=== PATIENT | female | born 1980 | race Caucasian/White ===

== ENCOUNTER 2016-12-27 04:08 | Inpatient (IN) | payer OTHER ==
[2016-12-27] MEDS ORDERED: OXYTOCIN/RINGERS LACTATE 1,000 ML IV PRN (04:53)
[2016-12-27] MEDS ORDERED: TERBUTALINE SULFATE 1 MG/ML VIAL IV PRN (04:53)
[2016-12-27] MEDS ORDERED: LR 1,000 ML IV PRN (04:53)
[2016-12-27 05:16] LABS: % IMMATURE GRANULYOCYTES 0.5 % (0.0-1.1); ABSOLUTE IMMATURE GRANULOCYTES 0.06 10^3/uL (0.00-0.10); ADD DIFF? NO; ADD MORPH? NO; ADD SCAN? NO; ATYPICAL LYMPHOCYTE FLAG 10 (0-99); FRAGMENT RBC FLAG 0 (0-99); HEMATOCRIT 38.7 % (38.0-47.0); HEMOGLOBIN 13.3 g/dL (12.6-16.3); LEFT SHIFT FLG 0 (0-99); LIPEMIA HEMOLYSIS FLAG 90 (0-99); MEAN CELL HEMOGLOBIN 31.7 pg (27.9-34.1); MEAN CELL HEMOGLOBIN CONCENTR. 34.4 g/dL (32.4-36.7); MEAN CELL VOLUME 92.4 fL (81.5-99.8); PLATELET CLUMPS FLAG 10 (0-99); PLATELET COUNT 183 10^3/uL (150-400); RED BLOOD CELL COUNT 4.19 10^6/uL (4.18-5.33); RED CELL DISTRIBUTION WIDTH 12.6 % (11.5-15.2)
[2016-12-27] MEDS ORDERED: AMMONIA AROMATIC 1 EACH AMP IH ONE (05:28)
[2016-12-27] MEDS ORDERED: LIDOCAINE 1% 30 ML SDV ONE (05:28)
[2016-12-27] MEDS ORDERED: TERBUTALINE SULFATE 1 MG/ML VIAL ONE (05:29)
[2016-12-27] MEDS ORDERED: MISOPROSTOL 200 MCG TAB ONE (05:29)
[2016-12-27] MEDS ORDERED: OXYTOCIN 10 UNIT/ML VIAL ONE (05:29)
[2016-12-27] MEDS ORDERED: fentaNYL 2MCG/ML/BUP 0.1% RTU 100 ML BAG EP ONE (06:03)
--- NOTE | 2016-12-27 06:21 | GHP ---
Labs: -Rh neg, rec'd Rhogam 09/30/16 -GBS neg -H&H 13.3/38.7 -1h GTT 117 -TDap rec'd 11/11/16 [f rep st] PREOP HISTORY AND PHYSICAL DATE OF ADMISSION: 12/27/2016 A 36-year-old, 3, para 1-0-1-1, at 40 weeks and 4 days, presenting in active labor. Arrived to the hospital around 4:00 a.m. at 7 cm, 90, and 0, with a bulging bag of water, complaining about contractions that started last night around 6:30 p.m. At 8:30 p.m., got stronger, and currently 10 minutes apart. MEDICAL HISTORY: Denies. SURGICAL HISTORY: D and C, in October 2014, status post miscarriage. MEDICATIONS: vitamins. ALLERGIES: Penicillin. Patient unsure of reaction. GYNECOLOGICAL HISTORY: Denies history of abnormal Paps. Denies history of STDs. SOCIAL HISTORY: Patient is . Denies alcohol, tobacco, or drug use. FAMILY HISTORY: Noncontributory. OBSTETRIC HISTORY: 1. October 2014, miscarriage with a D and C. 2. September 06, 2015, a vaginal delivery at 39 weeks. No complications. A 7- pound 12-ounce male. PHYSICAL EXAMINATION: VITAL SIGNS: Stable. GENERAL APPEARANCE: Alert and oriented x3. Heart rate regular. LUNGS: Clear to auscultation bilaterally. ABDOMEN: Gravid, nontender. position is cephalic. VAGINAL: 6-7, 90, 0. HEART TRACING: Category 1. Heart tones 135 with moderate variability and accelerations. No decelerations, and contractions are every 5- 7 minutes. ASSESSMENT: 1. A 36-year-old, 3, para 1-0-1-1, at 40 weeks and 4 days, presents in active labor, arriving at 7, 90, and 0. 2. She is Rh negative, received RhoGAM 09/29/2016. 3. Advanced maternal age. 4. GBS was negative. PLAN: 1. Admission labs. 2. Continue with maternal- monitoring. 3. Expectant management. 4. Patient requests epidural. 5. Discussed AROM if patient desires. /[id number]/MODL MTDD
--- NOTE | 2016-12-27 07:05 | OBPROG ---
OBG Progress Note Assessment/Plan: Assessment: 36y/o @40w4d Active labor Plan: Expectant mgmt KIYA in place Offer AROM Con't maternal/ monitoring 12/27/16 07:02 Subjective: Pt comfortable, resting in bed s/p epidural. FOB at bedside. Objective: 12/27/16 05:00 Patient ABO/Rh A NEGATIVE 12/27/16 05:00 - SVE Dilation (cm): 6 Effacement (%): 90 Station: 0 Current Contraction Pattern: Irregular, Other (Specify) (q 3-7 min) FHR Pattern Variability: Moderate FHR Category: 1 Membranes: AROM Amniotic Fluid Color: Clear - Physical Exam General Appearance: alert, no apparent distress Membranes: AROM Amniotic Fluid Color: clear Neuro/Psych: alert, normal mood/affect, oriented x 3 ICD10 Worksheet Patient Problems: Problems Problem Status Onset Active labor at term Acute (spontaneous vaginal delivery) Acute
--- NOTE | 2016-12-27 09:35 | OBPROG ---
OBG Progress Note Assessment/Plan: Assessment: 36 y/o @ 40 4/7 wks who presents in active labor Plan: Continue expectant management s/p epidural FHTs - Cat I tracing Anticipate 12/27/16 09:30 Subjective: Pt is comfortable, s/p epidural. Objective: 12/27/16 05:00 Patient ABO/Rh A NEGATIVE 12/27/16 05:00 - SVE Dilation (cm): 9 Effacement (%): 100 Station: +1 Current Contraction Pattern: Regular FHR (bpm): 135 FHR Pattern Variability: Moderate FHR Category: 1 Membranes: AROM Amniotic Fluid Color: Clear ICD10 Worksheet Patient Problems: Problems Problem Status Onset Active labor at term Acute - ICD10 Problem Qualifiers (1) Active labor at term (2) Active labor at term
[2016-12-27] MEDS ORDERED: OXYTOCIN/RINGERS LACTATE 30 UNIT/500 ML BAG IV ONE (14:19)
[2016-12-27] MEDS ORDERED: OXYTOCIN/RINGERS LACTATE 500 ML IV SCH (14:30)
--- NOTE | 2016-12-27 15:07 | OBPROG ---
OBG Progress Note Assessment/Plan: Assessment: 36 y/o @ 40 4/7 wks who presents in active labor Plan: FHTs - Cat I tracing Pt labored down x 2 hours with minimal descent in head position, still at +1 station Will start Pitocin since ctx's have spaced apart and pt has been pushing x 1 hr , stop pushing for now Suspect direct OP, will try peanut for position change x 20-30 min and start pushing again Anticipate 12/27/16 15:04 Subjective: Pt is feeling uncomfortable in between ctx's and states it feels better to push. No rectal pressure noted. Objective: 12/27/16 05:00 Patient ABO/Rh A NEGATIVE 12/27/16 05:00 Current Contraction Pattern: Irregular FHR (bpm): 140 FHR Pattern Variability: Moderate FHR Category: 1 Membranes: AROM Amniotic Fluid Color: Clear ICD10 Worksheet Patient Problems: Problems Problem Status Onset Active labor at term Acute - ICD10 Problem Qualifiers (1) Active labor at term
[2016-12-27] MEDS ORDERED: HYDROCORTISONE 0.5% CREAM TP PRN (18:19)
[2016-12-27] MEDS ORDERED: SIMETHICONE 80 MG TAB CHEW PO PRN (18:19)
[2016-12-27 18:20] LABS: PH VENOUS CORD BLOOD 7.33 (7.20-7.42)
[2016-12-27] MEDS ORDERED: IBUPROFEN 600 MG TAB PO PRN (18:20)
[2016-12-27 18:23] LABS: CORD BLOOD PCO2 59.8 mmHg (37-60); PH ARTERIAL CORD BLOOD 7.21 (7.10-7.37)
--- NOTE | 2016-12-27 18:24 | OBPROC ---
- Labor and Delivery Onset of Contractions Date: 12/26/16 Onset of Contractions Time: 21:00 Onset of Contractions Type: Spontaneous Rupture of Membranes Date: 12/27/16 Rupture of Membranes Time: 07:00 Rupture of Membranes Type: Artificial Amniotic Fluid Color: Clear Dilation Complete Time: 11:15 Delivery Type: Vacuum (Vacuum applied at +3 station, OA position, with appropriate pressures throughout. Applied x 2 for a duration of 2 minutes/2 sets of ctx's. Vacuum then removed and pt delivered head and rest of baby spontaneously.) Placenta Delivery Date: 12/27/16 Placenta Delivery Time: 17:52 Episiotomy/Laceration: 2nd Degree Repair: 3-0, Other (Specify) (Vicryl) EBL: 350 Complications: None Cord Gases: Cord Gases Cord VBG pH 7.33 (7.20-7.42) 12/27/16 17:46 - Medications Labor Augmentation/Induction Meds Used: Pitocin Labor Augmentation/Induction Indication: Other (Specify) (Prolonged second stage of labor) Anesthesia: Epidural - Info Infant A Delivery Date: 12/27/16 Delivery Time: 17:46 Sex of Infant: Female Score (1 Min): 7 Score (5 Min): 8
[2016-12-27] MEDS: IBUPROFEN 600 MG TAB PO PRN (18:31)
[2016-12-28] MEDS: IBUPROFEN 600 MG TAB PO PRN ×4 (00:07→17:57)
[2016-12-28] MEDS: HYDROCODONE/APAP 5/325 TAB PO PRN ×4 (06:41→20:15)
[2016-12-28 07:57] VITALS: TEMP 97.5
[2016-12-28] MEDS: DOCUSATE SODIUM 100 MG CAP PO PRN (11:50)
--- NOTE | 2016-12-28 12:31 | SOAPPROG ---
SOAP Progress Note Assessment/Plan: Assessment: 36y/o , day 1 Plan: Anticipate discharge to home tomorrow 12/27/16 07:02 12/28/16 12:29 Subjective: Pt resting comfortably, in NICU. Reports going well. Lochia light. Denies BM, passing flatus. Denies difficulty voiding. Objective: Vital Signs Temp Pulse Resp BP Pulse Ox 36.4 C 107 H 20 117/77 94 12/28/16 07:56 12/28/16 07:56 12/28/16 07:56 12/28/16 07:56 12/28/16 07:56 Laboratory Results 12/27/16 05:00 12/27/16 12/28/16 12/29/16 05:59 05:59 05:59 Output Total 350 Balance -350 Physical Exam - Physical Exam General Appearance: alert, no apparent distress Respiratory: lungs clear, normal breath sounds Cardiac/Chest: regular rate, rhythm Abdomen: non-tender, soft, other (Fundus firm @U-1) Pelvic Exam: vaginal bleeding (lochia light) Skin: normal color, warm/dry Extremities: normal range of motion Neuro/Psych: alert, normal mood/affect, oriented x 3 ICD10 Worksheet Patient Problems: Problems Problem Status Onset Active labor at term Acute Vacuum extraction, delivered, current hospitalization Acute
[2016-12-28 21:24] VITALS: O2SAT 97
[2016-12-29] MEDS: DOCUSATE SODIUM 100 MG CAP PO PRN ×3 (00:42→11:42)
[2016-12-29] MEDS: IBUPROFEN 600 MG TAB PO PRN ×3 (00:42→11:42)
[2016-12-29] MEDS: HYDROCODONE/APAP 5/325 TAB PO PRN ×2 (00:43→06:16)
--- NOTE | 2016-12-29 07:30 | OBPROG ---
OBG Progress Note Assessment/Plan: Assessment: 1) s/p VAVD PPD # 2 - pt is stable 2) Rh negative - no need for Rhogam Plan: Continue routine pp care Plan for d/c home today Instructions reviewed with pt Rx given for Motrin Cont PNV Pelvic rest RTC in 4 and 6 weeks for pp visit 12/29/16 07:27 12/29/16 07:29 Subjective: Pt seen and examined. Doing well, no complaints. Minimal cramping. Moderate lochia. She is pumping without difficulty. Baby girl is in NICU. If malgorzata stays will board. Objective: 12/27/16 05:00 Patient ABO/Rh A NEGATIVE 12/27/16 05:00 Temp Pulse Resp BP Pulse Ox 36.4 C 76 16 106/68 97 12/28/16 20:00 12/28/16 20:00 12/28/16 20:00 12/28/16 20:00 12/28/16 20:00 Uterine Position/Fundal Height: Umbilicus -2 Uterine Tone: Firm - Physical Exam General Appearance: WD/WN, alert, no apparent distress Respiratory: lungs clear, normal breath sounds Cardiac/Chest: regular rate, rhythm Abdomen: normal bowel sounds, non-tender, soft, flatus (+) Genitourinary: laceration (intact), lochia (moderate) Extremities: non-tender, normal inspection Neuro/Psych: alert, normal mood/affect, oriented x 3 ICD10 Worksheet Patient Problems: Problems Problem Status Onset Vacuum extraction, delivered, current hospitalization Acute - ICD10 Problem Qualifiers (1) Active labor at term
[2016-12-29 10:24] VITALS: BP 117/74; PULSE 75; RESP 14
== END 2016-12-29 12:00 | disposition home or self-care (01) | DRG 775 ==
LOC: OBSVTOIN 04:08 → FLD 04:08 → FOB 19:12
PROVIDERS: ADMIT Advanced Practice Midwife; ATTEND Obstetrics & Gynecology
PROC: 10907ZC Drainage of Amniotic Fluid, Therapeutic from Products of Conception, Via Natural or Artificial Opening (ICD-10-PCS; principal; 2016-12-27)
PROC: 0KQM0ZZ Repair Perineum Muscle, Open Approach (ICD-10-PCS; principal; 2016-12-27)
PROC: 10D07Z6 Extraction of Products of Conception, Vacuum, Via Natural or Artificial Opening (ICD-10-PCS; principal; 2016-12-27)
DX: O48.0 Post-term pregnancy (principal); O70.1 Second degree perineal laceration during delivery; O63.1 Prolonged second stage (of labor); Z3A.40 40 weeks gestation of pregnancy; Z37.0 Single live birth
CPT/HCPCS: J2590; J3105